=== PATIENT | male | born 1985 | race Two or more races ===

== ENCOUNTER 2018-01-27 17:26 | Emergency (ER) | payer SELFPAY ==
[~2018-01-27] VITALS: Ht 180.3 cm; Wt 101.7 kg
[2018-01-27 17:44] VITALS: BP 130/90
== END 2018-01-27 19:19 | disposition home or self-care (01) ==
LOC: ED 18:00
DX: S42.022A Displaced fracture of shaft of left clavicle, initial encounter for closed fracture (principal); V43.52XA Car driver injured in collision with other type car in traffic accident, initial encounter; Y93.89 Activity, other specified; Y92.89 Other specified places as the place of occurrence of the external cause; Y99.8 Other external cause status
CPT/HCPCS: 99281

== ENCOUNTER 2020-10-11 17:05 | Emergency (ER) | payer OTHER ==
[~2020-10-11] VITALS: Ht 177.8 cm; Wt 96.6 kg
[2020-10-11] MEDS ORDERED: DICYCLOMINE 10 MG/ML, 2ML IM ONE (17:30)
[2020-10-11] MEDS ORDERED: ONDANSETRON ODT 4 MG PO ONE (17:30)
--- NOTE | 2020-10-11 17:37 | NUR ---
Pt reports stomach pain around umbilicus that started lastnight and got worse today. Vomitting today. Denies any medical hx.
[2020-10-11] MEDS ORDERED: DICYCLOMINE 10 MG/ML, 2ML ONE (17:48)
[2020-10-11] MEDS ORDERED: ONDANSETRON ODT 4 MG ONE (17:48)
--- NOTE | 2020-10-11 17:58 | NUR ---
Medicated per [facility]MAR.
[2020-10-11 18:12] LABS: BASOPHILS % (AUTO) 0 % (0-1); EOSINOPHILS % (AUTO) 1 % (1-7); LYMPHOCYTES % (AUTO) 11 % (22-44); MEAN CORPUSCULAR HEMOGLOBIN 31.3 pg (27.5-34.5); MEAN CORPUSCULAR HGB CONC 33.5 g/dL (33.2-36.2); MEAN PLATELET VOLUME 7.4 fL (7.4-10.4); MONOCYTES % (AUTO) 6 % (2-9); NEUTROPHILS % (AUTO) 81 % (42-75); PLATELET COUNT 244 x10^3/uL (130-400); RED BLOOD COUNT 4.94 x10^6/uL (4.38-5.82); RED CELL DISTRIBUTION WIDTH 13.6 % (9.4-14.8)
[2020-10-11 18:14] LABS: ALANINE AMINOTRANSFERASE 246 U/L (12-78); ALBUMIN 3.2 g/dL (3.4-5.0); ANION GAP 7 mmol/L (5-15); CALCIUM 8.8 mg/dL (8.5-10.1); CHLORIDE 109 mmol/L (98-107); CREATININE 1.08 mg/dL (0.7-1.3); MD NO
[2020-10-11 18:17] LABS: ALKALINE PHOSPHATASE 147 U/L (45-117); BILIRUBIN,TOTAL 0.4 mg/dL (0.2-1.0); TOTAL PROTEIN 7.8 g/dL (6.4-8.2)
--- NOTE | 2020-10-11 19:06 | NUR ---
Provided pt warm blanket. Pt reports he "feels a little better" after the medications.
--- NOTE | 2020-10-11 20:08 | NUR ---
US at bedside.
--- NOTE | 2020-10-11 20:38 | NUR ---
Provider at bedside.
[2020-10-11 20:46] VITALS: BP 126/64
--- NOTE | 2020-10-11 20:46 | NUR ---
Pt agrees with and understands discharge plan and instructions.
== END 2020-10-11 21:01 | disposition home or self-care (01) ==
LOC: ED 20:54
DX: R10.13 Epigastric pain (principal); R11.2 Nausea with vomiting, unspecified; R94.5 Abnormal results of liver function studies
CPT/HCPCS: 36415; 76700; 80053; 80074; 83690; 85025; 96372; 99284; J0500; Q0162

== ENCOUNTER 2021-03-29 17:53 | Emergency (ER) | payer OTHER ==
[~2021-03-29] VITALS: Ht 177.8 cm; Wt 91.5 kg
[2021-03-29] MEDS ORDERED: METHOCARBAMOL 750 MG TABLET PO ONE (19:00)
[2021-03-29] MEDS ORDERED: KETOROLAC 30 MG/1 ML IM ONE (19:00)
--- NOTE | 2021-03-29 20:08 | NUR ---
PT AMBULATED STEADILY TO ROOM FROM LOBBY. REPORTS L FLANK PAIN X SEVERAL DAYS, DENIES TRAUMA/FEVER/N/V/BLOOD IN URINE. PT AMBULATED STEADILY TO BATHROOM TO PROVIDE UA.
[2021-03-29] MEDS ORDERED: METHOCARBAMOL 750 MG TABLET ONE (20:16)
[2021-03-29] MEDS ORDERED: KETOROLAC 30 MG/1 ML ONE (20:16)
[2021-03-29 20:27] VITALS: BP 125/81
== END 2021-03-29 20:34 | disposition home or self-care (01) ==
LOC: ED 18:00
DX: S39.012A Strain of muscle, fascia and tendon of lower back, initial encounter (principal); X58.XXXA Exposure to other specified factors, initial encounter; Y93.89 Activity, other specified; Y92.89 Other specified places as the place of occurrence of the external cause; Y99.8 Other external cause status
CPT/HCPCS: 96372; 99283; J1885